=== PATIENT | male | born 2000 | race Caucasian/White ===

== ENCOUNTER 2024-01-21 18:32 | Emergency (ER) | payer MEDICAID, OTHER ==
[~2024-01-21] VITALS: Ht 175.3 cm; Wt 76.8 kg
[2024-01-21 18:33] VITALS: TEMP 98
[2024-01-21 23:03] VITALS: BP 128/75; O2SAT 98
== END 2024-01-21 23:04 | disposition home or self-care (01) ==
LOC: M ED 18:32
DX: S93.402A Sprain of unspecified ligament of left ankle, initial encounter (principal); X58.XXXA Exposure to other specified factors, initial encounter; Y92.9 Unspecified place or not applicable; Y93.89 Activity, other specified; Y99.0 Civilian activity done for income or pay